=== PATIENT | female | born 1995 | race Caucasian/White ===

== ENCOUNTER 2018-07-20 02:03 | Emergency (ER) | payer OTHER, SELFPAY ==
[2018-07-20 02:05] VITALS: BP 92/59; PULSE 103; RESP 20; TEMP 36.6; O2SAT 97
--- NOTE | 2018-07-20 02:43 | W.ED.GENAD ---
Discharge Plan Disposition Patient Disposition: HOME Condition: Good Discharge Details Chief Complaint: Chest/Rib Clinical Impression: Viral respiratory illness, Atypical chest pain Primary Care Provider: Dale Pratt ED Provider: Aleksandr Carmona Meds and New Rx's Prescriptions: Continued cetirizine 10 MG tablet 10 mg PO DAILY Qty: 30 RF: 0 diphenhydramine HCl [Benadryl] 25 MG capsule 25 mg PO PRN RF: 0 Discharge Instructions Instructions: Viral Syndrome (ED) Additional Instructions: Suspect pain is related to viral illness. Use Motrin or Tylenol to help with fever, body aches, chest pain. Stay hydrated. Return to emergency department if you develop shortness of breath, worsening/persistent chest pain, other concerns. Referrals: Dale Pratt [Primary Care Provider] - Medical Decision Making Patient here with bandlike chest pain which is resolved. Episodes were intermittent lasting only 30 seconds at a time. She had no associated shortness of breath. She did not feel short of breath currently. Pain was not pleuritic. It was not reproducible. She has been ill today with fever, cough, body aches. Saturations are normal. Lungs are clear to auscultation. She has arrhythmia with frequent ectopic beats which has been worked up previously. I do not suspect that this is related to cardiac ischemia. I do not suspect pulmonary embolus. I do not suspect pneumonia with clear lungs with normal saturations. Suspect this is all related to viral illness. Discussed this with the patient. Will give Motrin. Continue as needed at home. Push fluids and rest. Follow-up with primary care next week if not better. Return to ED if develops shortness of breath, new or worsening persistent chest pain, other concerns. HPI General Mode of arrival: ambulatory. Date/Time Provider Initiated Documentation: 07/20/18 02:14. Limitations to Documentation: no limitations. Information obtained by: patient. HPI Narrative: Patient presents to ED because of bandlike lower chest pain that occurred on and off this evening while trying to sleep. Episodes would last maybe 30 seconds. They were not pleuritic in nature. She did not feel short of breath. Pain is not worse with movement. She has been ill today with fever, headache, body aches, cough. She is not having nausea, vomiting, abdominal pain. She has no pain currently. She has a history of arrhythmia and is been worked up at [facility]. She has no other significant past medical history. Related Data Home Medications Medication Instructions Recorded Confirmed cetirizine 10 mg PO DAILY #30 tab-cap 04/03/13 07/20/18 diphenhydramine HCl [Benadryl] 25 mg PO PRN 07/07/17 07/20/18 Allergies Allergy/AdvReac Type Severity Reaction Status Date / Time No Known Allergies Allergy Unverified 07/07/17 10:10 General Stated Complaint: Chest/Rib SCOOTER: 4 Review of Systems Constitutional Reports body ache(s), Reports fever(s), Reports headache(s), Denies lethargy, Reports malaise, Denies poor appetite and Denies weakness ENT Denies otalgia, Reports headache(s), Denies nasal congestion, Denies nasal discharge, Denies neck pain and Denies sore throat Cardiovascular Reports chest pain, Denies diaphoresis, Denies syncope, Denies pedal edema, Denies edema, Reports irregular heart rhythm, Denies dyspnea and Denies dyspnea on exertion Respiratory Reports cough, Denies dyspnea and Denies dyspnea on exertion Gastrointestinal Denies abdominal pain, Denies diarrhea, Denies nausea and Denies vomiting Musculoskeletal Denies back pain, Reports myalgias, Denies neck pain and Denies numbness Integumentary/Breasts Denies rash Neurologic Denies confusion, Denies syncope, Reports headache(s), Denies focal weakness, Denies numbness and Denies weakness Psychiatric Denies confusion [facility] Medical History Arrhythmia (Chronic) Seasonal allergies (Chronic) Family History Maternal Aunt Breast cancer Social History Smoking/Tobacco Use Status: Never Exam Const General: cooperative, comfortable and no acute distress Orientation: alert and oriented x3 HENMT Head: normocephalic and atraumatic Ears: external ears normal and TM's normal bilaterally Mouth: oropharynx normal and moist mucous membranes Throat: posterior oropharynx normal, uvula midline and no uvular edema Eyes Conjunctivae: conjunctivae normal Neck Neck: trachea midline and supple Chest Chest: no tenderness Resp Effort & Inspection: normal respiratory effort Auscultation: clear to auscultation bilaterally, no rales, no rhonchi and no wheezes Cardio Rate: regular rate Rhythm: abnormal rhythm with ectopic beats Heart Sounds: S1 normal and S2 normal Back/Spine/Pelvis Thoracic/Lumbar Spine: thoracic and lumbar spine normal to inspection and thoraco-lumbar ROM normal Skin General skin exam: no rashes or lesions noted Neuro General: alert, oriented x3, no focal motor deficits and CN's II-XI intact bilaterally Extrem General: no clubbing, cyanosis or edema and no calf tenderness Course Vital Signs Temperature 97.9 F 07/20/18 02:05 Pulse 103 H 07/20/18 02:05 Respiratory Rate 20 07/20/18 02:05 Blood Pressure 92/59 L 07/20/18 02:05 Pulse Oximetry 97 07/20/18 02:05 Temperature 97.9 F 07/20/18 02:05 Temperature Source Skin 07/20/18 02:05 Pulse 103 H 07/20/18 02:05 Respiratory Rate 20 07/20/18 02:05 Respiratory Effort 07/20/18 02:19 Respiratory Depth Normal 07/20/18 02:19 Respiratory Pattern Normal 07/20/18 02:19 Blood Pressure 92/59 L 07/20/18 02:05 Blood Pressure Position Sitting 07/20/18 02:05 Pulse Oximetry 97 07/20/18 02:05 Oxygen Delivery Method Room Air 07/20/18 02:05 Oxygen Flow Rate 0 07/20/18 02:05 Pain Level 6 07/20/18 02:05
--- NOTE | 2018-07-20 02:46 | ED.GENADUL_ITS ---
Discharge Plan Disposition Patient Disposition: HOME Condition: Good Discharge Details Chief Complaint: Chest/Rib Clinical Impression: Viral respiratory illness, Atypical chest pain Primary Care Provider: Dale Pratt ED Provider: Aleksandr Carmona Meds and New Rx's Prescriptions: Continued cetirizine 10 MG tablet 10 mg PO DAILY Qty: 30 RF: 0 diphenhydramine HCl [Benadryl] 25 MG capsule 25 mg PO PRN RF: 0 Discharge Instructions Instructions: Viral Syndrome (ED) Additional Instructions: Suspect pain is related to viral illness. Use Motrin or Tylenol to help with fever, body aches, chest pain. Stay hydrated. Return to emergency department if you develop shortness of breath, worsening/persistent chest pain, other co ncerns. Referrals: Dale Pratt [Primary Care Provider] - Medical Decision Making Patient here with bandlike chest pain which is resolved. Episodes were intermittent lasting only 30 seconds at a time. She had no associated shortness of breath. She did not feel short of breath currently. Pain was not pleuritic. It was not reproducible. She has been ill today with fever, cough, body aches. Saturations are normal. Lungs are clear to auscultation. She has arrhythmia with frequent ectopic beats which has been worked up previously. I do not suspect that this is related to cardiac ischemia. I do not suspect pulmonary embolus. I do not suspect pneumonia with clear lungs with normal saturations. Suspect this is all related to viral illness. Discussed this with the patient. Will give Motrin. Continue as needed at home. Push fluids and rest. Follow-up with primary care next week if not better. Return to ED if develops shortness of breath, new or worsening persistent chest pain, other concerns. HPI General Mode of arrival: ambulatory . Date/Time Provider Initiated Documentation: 07/20/18 02:14 . Limitations to Documentation: no limitations . Information obtained by: patient . HPI Narrative: Patient presents to ED because of bandlike lower chest pain that occurred on and off this evening while trying to sleep. Episodes would last maybe 30 seconds. They were not pleuritic in nature. She did not feel short of breath. Pain is not worse with movement. She has been ill today with fever, headache, body aches, cough. She is not having nausea, vomiting, abdominal pain. She has no pain currently. She has a history of arrhythmia and is been worked up at [facility]. She has no other significant past medical history. Related Data Home Medications Medication Instructions Recorded Confirmed cetirizine 10 mg PO DAILY #30 tab-cap 04/03/13 07/20/18 diphenhydramine HCl [Benadryl] 25 mg PO PRN 07/07/17 07/20/18 Allergies Allergy/AdvReac Type Severity Reaction Status Date / Time No Known Allergies Allergy Unverified 07/07/17 10:10 General Stated Complaint: Chest/Rib SCOOTER: 4 Review of Systems Constitutional Reports body ache(s), Reports fever(s), Reports headache(s), Denies lethargy, Reports malaise, Denies poor appetite and Denies weakness ENT Denies otalgia, Reports headache(s), Denies nasal congestion, Denies nasal discharge, Denies neck pain and Denies sore throat Cardiovascular Reports chest pain, Denies diaphoresis, Denies syncope, Denies pedal edema, Denies edema, Reports irregular heart rhythm, Denies dyspnea and Denies dyspnea on exertion Respiratory Reports cough, Denies dyspnea and Denies dyspnea on exertion Gastrointestinal Denies abdominal pain, Denies diarrhea, Denies nausea and Denies vomiting Musculoskeletal Denies back pain, Reports myalgias, Denies neck pain and Denies numbness Integumentary/Breasts Denies rash Neurologic Denies confusion, Denies syncope, Reports headache(s), Denies focal weakness, Denies numbness and Denies weakness Psychiatric Denies confusion [facility] Medical History Arrhythmia (Chronic) Seasonal allergies (Chronic) Family History Maternal Aunt Breast cancer Social History Smoking/Tobacco Use Status: Never Exam Const General: cooperative, comfortable and no acute distress Orientation: alert and oriented x3 HENMT Head: normocephalic and atraumatic Ears: external ears normal and TM's normal bilaterally Mouth: oropharynx normal and moist mucous membranes Throat: posterior oropharynx normal, uvula midline and no uvular edema Eyes Conjunctivae: conjunctivae normal Neck Neck: trachea midline and supple Chest Chest: no tenderness Resp Effort & Inspection: normal respiratory effort Auscultation: clear to auscultation bilaterally, no rales, no rhonchi and no wheezes Cardio Rate: regular rate Rhythm: abnormal rhythm with ectopic beats Heart Sounds: S1 normal and S2 normal Back/Spine/Pelvis Thoracic/Lumbar Spine: thoracic and lumbar spine normal to inspection and thoraco-lumbar ROM normal Skin General skin exam: no rashes or lesions noted Neuro General: alert, oriented x3, no focal motor deficits and CN's II-XI intact bilaterally Extrem General: no clubbing, cyanosis or edema and no calf tenderness Course Vital Signs Temperature 97.9 F 07/20/18 02:05 Pulse 103 H 07/20/18 02:05 Respiratory Rate 20 07/20/18 02:05 Blood Pressure 92/59 L 07/20/18 02:05 Pulse Oximetry 97 07/20/18 02:05 Temperature 97.9 F 07/20/18 02:05 Temperature Source Skin 07/20/18 02:05 Pulse 103 H 07/20/18 02:05 Respiratory Rate 20 07/20/18 02:05 Respiratory Effort 07/20/18 02:19 Respiratory Depth Normal 07/20/18 02:19 Respiratory Pattern Normal 07/20/18 02:19 Blood Pressure 92/59 L 07/20/18 02:05 Blood Pressure Position Sitting 07/20/18 02:05 Pulse Oximetry 97 07/20/18 02:05 Oxygen Delivery Method Room Air 07/20/18 02:05 Oxygen Flow Rate 0 07/20/18 02:05 Pain Level 6 07/20/18 02:05
[2018-07-20] MEDS: Ibuprofen 600 MG TAB PO (02:49)
== END 2018-07-20 03:00 | disposition home or self-care (01) ==
LOC: ER 02:57
PROVIDERS: Emergency Provider Emergency Medicine; PCP Specialist/Technologist Athletic Trainer
DX: B34.9 Viral infection, unspecified (principal); R07.89 Other chest pain
CPT/HCPCS: 99282

== ENCOUNTER 2021-12-02 21:46 | Emergency (ER) | payer BC, SELFPAY ==
[2021-12-02 21:52] VITALS: BP 132/68; PULSE 82; RESP 18; TEMP 36.3; O2SAT 96
--- NOTE | 2021-12-02 22:00 | DI.CT_ITS ---
Exam(s) CT RENAL COLIC WO EXAM: CT RENAL COLIC WO CLINICAL HISTORY: Right flank pain. TECHNIQUE: Imaging Protocol: Axial computed tomography images with coronal and sagittal reformatted images were created and reviewed CONTRAST MATERIAL: Intravenous: none Oral: None COMPARISON: No exams were available for comparison FINDINGS: VISUALIZED LUNG BASES: Tiny 2 millimeter pleural based nodule noted in the lateral basal segment of t he left lower lobe. No pleural effusions.. ABDOMEN: There is no ascites in the upper abdomen. LIVER: There are no obvious focal hepatic lesions evident of this noninfused study. GALLBLADDER/BILIARY: No obvious gallbladder pathology. CBD is not dilated. PANCREAS: No evidence of pancreatic mass nor dilatation of the pancreatic duct. SPLEEN: Spleen is not enlarged. No obvious intrasplenic lesions. ADRENALS: There are no significant adrenal masses. KIDNEYS:No cysts evident. No solid renal masses. No calculi nor hydronephrosis. . ABDOMINAL AORTA: Abdominal aorta is not enlarged. LYMPH NODES: There is no retroperitoneal nor paraaortic adenopathy. ABDOMINAL WALL: No evidence of significant anterior abdominal wall nor inguinal hernia. GI: There is no evidence of bowel obstruction, free air, nor abscess. PELVIS: LYMPH NODES: There is no intrapelvic nor inguinal adenopathy. GI: No evidence of appendicitis.No evidence of sigmoid diverticulitis. URINARY BLADDER: No calculi nor obvious masses evident REPRODUCTIVE: Uterus is retroverted-retroflexed. No abnormal adnexal masses.. There is a small amou nt of fluid in the cul-de-sac. This may be female physiologic. OSSEOUS: No significant osseous lesions. IMPRESSION: 1. No urinary tract calculi nor urinary tract obstruction evident. No significant focal renal findin gs nor obvious abnormality in the nondistended urinary bladder. 2. Small amount of fluid in the cul-de-sac. Probably female physiologic. Uterus is retroverted. 3. There RADIATION DOSE DELIVERED: 859.36mGy.cm Total DLP DATA REPOSITORY: All CT scans at this facility are submitted to the National Radiology Data Registry (NRDR) Dose Index Registry (DIR) with the [employer] (A[employer]). RADIATION OPTIMIZATION: All CT scans at this facility use at least one of these dose optimization te chniques: automated exposure control; mA and/or kV adjustment per patient size (includes targeted exa ms where dose is matched to clinical indication); or iterative reconstruction.
[2021-12-02 22:37] LABS: Bilirubin Negative (Negative); Blood Negative (Negative); Clarity Clear (Clear); Glucose Negative (Negative); Ketones Negative (Negative); Leukocyte Esterase Negative (Negative); Nitrite Negative (Negative); Specific Gravity 1.025 (1.005-1.025)
[2021-12-02 23:00] LABS: Abs Immature Grans 0.03 10^3/uL (0.0-0.06); Absolute Basophil Count 0.04 10^3/uL (0.0-0.2); Absolute Eosinophil Count 0.12 10^3/uL (0.0-0.7); Absolute Lymphocyte Count 2.87 10^3/uL (1.2-3.4); Absolute Neutrophil Count 6.28 10^3/uL (1.2-6.7); Basophils % 0.4; Eosinophils % 1.2; HCT 38.9 % (36.0-46.0); HGB 13.2 g/dL (11.2-15.7); Immature Grans % 0.3; Lymphocytes % 27.8; MCH 29.1 pg (27.0-33.0); MCHC 33.9 % (32.0-36.0); MCV 86 fL (80-95); MPV 10.1 fL (8.0-11.0); Monocytes % 9.7; Neutrophils % 60.6; Platelet Count 263 10^3/uL (130-400); RBC 4.53 10^6/uL (3.93-5.22); RDW 12.8 % (11.7-14.6); WBC 10.34 10^3/uL (4.4-10.8)
[2021-12-02 23:18] LABS: ALT 19 U/L (14-59); AST 12 U/L (15-37); Albumin 3.7 g/dL (3.4-5.0); Alkaline Phosphatase 80 U/L (46-116); Anion Gap 6.8 mmol/L (3-11); BUN 10 mg/dL (7-18); Bilirubin, Total 0.3 mg/dL (0.2-1.0); CO2 28.2 mmol/L (21.0-32.0); CREATININE 0.8 mg/dL (0.55-1.02); Chloride 104 mmol/L (98-107); Glucose 90 mg/dL (74-106); Potassium 3.8 mmol/L (3.5-5.1); Sodium 139 mmol/L (136-145); Total Protein 7.2 g/dL (6.4-8.2)
--- NOTE | 2021-12-02 23:31 | W.ED.GENAD ---
Discharge Plan Disposition Patient Disposition: HOME Condition: Stable Discharge Details Clinical Impression: Acute abdominal pain in right flank Primary Care Provider: Dale Pratt ED Provider: Guille Evans Home Meds and New Rx's Prescriptions: No Action cetirizine 10 MG tablet 10 mg PO DAILY Qty: 30 Label Comments: PRN diphenhydramine HCl [Benadryl] 25 MG capsule 25 mg PO PRN Discharge Data Discharge Date/Time-TO BE ENTERED AT DEPARTURE: 12/03/21 00:10 Medical Decision Making <Kj Almendarez NP - Last Filed: 12/04/21 10:36> Patient presenting the emergency department for chief complaint of right flank pain with pain slightly radiating into right lower quadrant. Patient reports that pain started yesterday and has had some mild nausea with symptoms. Previously she did have a urinary tract infection that also caused some flank pain but this has been different. Patient denies any vomiting, change in bowel or bladder function, food does not seem to change onset of symptoms, denies fever chills. Physical exam shows no CVA tenderness, mild tenderness to palpation of right flank and right lower quadrant but no rebound, no obvious psoas sign, no roving sign, no Mcclain sign exam otherwise unremarkable. We will plan on checking labs and CT imaging for suspicion of renal colic. Reviewed labs and CBC is unremarkable, CMP is also unremarkable, urine shows mild increase of urobilinogen but again otherwise unremarkable no signs of infection. Awaiting full radiology review and interpretation of CT scan. We will plan on signing patient out to Amandeep Evans to follow-up on radiological imaging and disposition of patient. Lab Data Lab results reviewed: Yes I reviewed the patient's lab results. <Guille Evans DO - Last Filed: 12/03/21 00:31> Patient presenting the emergency department for chief complaint of right flank pain with pain slightly radiating into right lower quadrant. Patient reports that pain started yesterday and has had some mild nausea with symptoms. Previously she did have a urinary tract infection that also caused some flank pain but this has been different. Patient denies any vomiting, change in bowel or bladder function, food does not seem to change onset of symptoms, denies fever chills. Physical exam shows no CVA tenderness, mild tenderness to palpation of right flank and right lower quadrant but no rebound, no obvious psoas sign, no roving sign, no Mcclain sign exam otherwise unremarkable. We will plan on checking labs and CT imaging for suspicion of renal colic. Reviewed labs and CBC is unremarkable, CMP is also unremarkable, urine shows mild increase of urobilinogen but again otherwise unremarkable no signs of infection. Awaiting full radiology review and interpretation of CT scan. We will plan on signing patient out to Amandeep Evans to follow-up on radiological imaging and disposition of patient. Dr. Evans's documentation 12:29 AM Patient was signed out to me pending CT scan results. Unfortunately the patient eloped without telling anyone. I did not get to evaluate or reevaluate the patient. CT scan results did return later, and CT shows no evidence of acute process. I did call the patient but she did not steel pickler. I did leave a message. FINDINGS: Liver: Normal. No mass. Gallbladder and bile ducts: Normal. No calcified stones. No ductal dilation. Pancreas: Normal. No ductal dilation. Spleen: Normal. No splenomegaly. Adrenal glands: Normal. No mass. Kidneys and ureters: Normal. No hydronephrosis. Stomach and bowel: Unremarkable. No obstruction. No mucosal thickening. Appendix: No evidence of appendicitis. Intraperitoneal space: Minimal pelvic free fluid, likely physiologic in female patient of stated age. Vasculature: Unremarkable. No abdominal aortic aneurysm. Lymph nodes: Unremarkable. No enlarged lymph nodes. Urinary bladder: Unremarkable as visualized. Reproductive: Unremarkable as visualized. Bones/joints: Unremarkable. No acute fracture. Soft tissues: Unremarkable. IMPRESSION: No acute finding. Thank you for allowing us to participate in the care of your patient. Dictated and Authenticated by: Prince Tsai MD 12/03/2021 12:00 AM Eastern Time ([place] & [place]) HPI <Kj Almendarez NP - Last Filed: 12/04/21 10:36> General Mode of arrival: ambulatory. Date/Time Provider Initiated Documentation: 12/02/21 22:05. Limitations to Documentation: no limitations. Information obtained by: patient. History of Present Illness 26 year old F presents to the emergency department with the chief complaint of Right flank pain, described as moderate, with intensity rated at 5. Quality is described as aching, and is localized to the abdomen (flank) and right. Patient abdomen. Patient started experiencing this day(s) (1) and it has been constant. No relieving factors improve symptom(s), Movement worsens symptoms . Patient notes denies chest pain, fever/chills, loss of appetite and malaise. Patient did receive the following treatments prior to arrival, none Related Data Home Medications Medication Instructions Recorded Confirmed cetirizine 10 mg tablet 10 mg PO DAILY #30 tab-caps 04/03/13 12/02/21 diphenhydramine HCl 25 mg capsule 25 mg PO PRN 07/07/17 07/20/18 (Benadryl) Allergies Allergy/AdvReac Type Severity Reaction Status Date / Time No Known Allergies Allergy Unverified 12/02/21 21:57 General Stated Complaint: FlankPain SCOOTER: 3 Review of Systems <Kj Almendarez NP - Last Filed: 12/04/21 10:36> Constitutional Constitutional: Denies chills, Denies fever(s), Denies headache(s) and Denies poor appetite ENT Ears, Nose, Mouth, and Throat: Denies headache(s) Cardiovascular Cardiovascular: Denies chest pain and Denies dyspnea Respiratory Respiratory: Denies cough and Denies dyspnea Gastrointestinal Gastrointestinal: Reports as per HPI, Reports abdominal pain, Denies melena, Denies hematochezia, Denies change in bowel habits, Denies constipation, Denies diarrhea, Reports nausea, Denies vomiting and Denies hematemesis Genitourinary Genitourinary: Denies abnormal vaginal bleeding, Denies hematuria, Denies difficulty voiding, Denies dysuria, Denies pelvic pain, Reports flank pain, Denies urinary incontinence, Denies urinary hesitancy, Denies urinary urgency and Denies vaginal discharge Musculoskeletal Musculoskeletal: Denies back pain Integumentary/Breasts Skin/Breast: Denies rash Neurologic Neurologic: Denies headache(s) PFS <Kj Almendarez NP - Last Filed: 12/04/21 10:36> All Active Problems (Updated 12/04/21 @ 10:36 by Kj Almendarez NP) Acute abdominal pain in right flank (Acute) Medical History Arrhythmia Seasonal allergies Family History Maternal Aunt Breast cancer 40s, tx lumpectomy, chemo/radiation Social History Smoking/Tobacco Use Status: Never Smoking risk assessment performed?: Yes Alcohol Intake: never Drug use: Never Substance use type: does not use Do you feel safe at home: Yes Do you feel safe in your relationship?: Yes Female Reproductive History Menstrual Date of last menstrual period: 11/17/21 Course <Kj Almendarez NP - Last Filed: 12/04/21 10:36> Vital Signs Vital signs: Vital Signs Temperature 36.3 C L 12/02/21 21:52 Pulse 82 12/02/21 21:52 Respiratory Rate 18 12/02/21 21:52 Blood Pressure 132/68 12/02/21 21:52 Pulse Oximetry 96 12/02/21 21:52 Temperature 36.3 C L 12/02/21 21:52 Pulse 82 12/02/21 21:52 Respiratory Rate 18 12/02/21 21:52 Respiratory Effort Non-Labored 12/02/21 21:55 Blood Pressure 132/68 12/02/21 21:52 Blood Pressure Position Sitting 12/02/21 21:52 Pulse Oximetry 96 12/02/21 21:52 Oxygen Delivery Method Room Air 12/02/21 21:52 Oxygen Flow Rate 0 12/02/21 21:52 Pain Level 5 12/02/21 21:55 Lab/Test Results Lab/Test Results: Laboratory Tests Range/Units 12/02/21 12/02/21 12/02/21 22:22 22:50 22:50 WBC (4.4-10.8) 10^3/uL 10.34 RBC (3.93-5.22) 10^6/uL 4.53 Hgb (11.2-15.7) g/dL 13.2 Hct (36.0-46.0) % 38.9 MCV (80-95) fL 86 MCH (27.0-33.0) pg 29.1 MCHC (32.0-36.0) % 33.9 RDW (11.7-14.6) % 12.8 Plt Count (130-400) 10^3/uL 263 MPV (8.0-11.0) fL 10.1 Immature Gran % 0.3 Neutrophils % 60.6 Lymphocytes % 27.8 Monocytes % 9.7 Eosinophils % 1.2 Basophils % 0.4 Nucleated RBC % (0.0-0.3) % 0.0 Absolute Neutrophils (1.2-6.7) 10^3/uL 6.28 Absolute Lymphocytes (1.2-3.4) 10^3/uL 2.87 Absolute Monocytes (0.1-0.8) 10^3/uL 1.00 H Absolute Eosinophils (0.0-0.7) 10^3/uL 0.12 Absolute Basophils (0.0-0.2) 10^3/uL 0.04 Sodium (136-145) mmol/L 139 Potassium (3.5-5.1) mmol/L 3.8 Chloride (98-107) mmol/L 104 Carbon Dioxide (21.0-32.0) mmol/L 28.2 Anion Gap (3-11) mmol/L 6.8 BUN (7-18) mg/dL 10 Creatinine (0.55-1.02) mg/dL 0.8 Estimated GFR/1.73 m2 (mL/min/1.73m2) >= 60.00 Glucose (74-106) mg/dL 90 Calcium (8.5-10.1) mg/dL 9.0 Total Bilirubin (0.2-1.0) mg/dL 0.3 AST (15-37) U/L 12 L ALT (14-59) U/L 19 Alkaline Phosphatase (46-116) U/L 80 Total Protein (6.4-8.2) g/dL 7.2 Albumin (3.4-5.0) g/dL 3.7 Urine Color (Yellow) Yellow Urine Clarity (Clear) Clear Urine pH (5-8) 7.0 Ur Specific [place] (1.005-1.025) 1.025 Urine Protein (Negative) mg/dL Negative Urine Ketones (Negative) mg/dL Negative Urine Blood (Negative) Negative Urine Nitrite (Negative) Negative Urine Bilirubin (Negative) Negative Urine Urobilinogen (Up TO 0.2) EU/dL 1.0 H Ur Leukocyte Esterase (Negative) Negative Urine Glucose (Negative) mg/dL Negative POC- Test(urine) Negative Sign Out <Kj Almendarez NP - Last Filed: 12/04/21 10:36> Sign Out Data: Sign Out Comment: Patient pending radiologist interpretation of CT scan. Patient has refused IV fluids and pain medication. Labs are reassuring. Last updated by Kj Almendarez NP at 12/02/21 23:46
--- NOTE | 2021-12-03 00:01 | DI.VRAD_ITS ---
PROCEDURE INFORMATION: Exam: CT Abdomen And Pelvis Without Contrast Exam date and time: 12/02/2021 11:19 PM Age: 26 years old Clinical indication: Patient HX: R flank pain since yesterday TECHNIQUE: Imaging protocol: Computed tomography of the abdomen and pelvis without contrast. Radiation optimization: All CT scans at this facility use at least one of these dose optimization techniques: automated exposure control; mA and/or kV adjustment per patient size (includes targeted exams where dose is matched to clinical indication); or iterative reconstruction. COMPARISON: No relevant prior studies available. FINDINGS: Liver: Normal. No mass. Gallbladder and bile ducts: Normal. No calcified stones. No ductal dilation. Pancreas: Normal. No ductal dilation. Spleen: Normal. No splenomegaly. Adrenal glands: Normal. No mass. Kidneys and ureters: Normal. No hydronephrosis. Stomach and bowel: Unremarkable. No obstruction. No mucosal thickening. Appendix: No evidence of appendicitis. Intraperitoneal space: Minimal pelvic free fluid, likely physiologic in female patient of stated age. Vasculature: Unremarkable. No abdominal aortic aneurysm. Lymph nodes: Unremarkable. No enlarged lymph nodes. Urinary bladder: Unremarkable as visualized. Reproductive: Unremarkable as visualized. Bones/joints: Unremarkable. No acute fracture. Soft tissues: Unremarkable. IMPRESSION: No acute finding. Dictated and Authenticated by: Prince Tsai MD. Ordering:KAYKAY Underwood MD
== END 2021-12-03 00:10 | disposition home or self-care (01) ==
PROVIDERS: Nurse Practitioner Family; Emergency Provider Student in an Organized Health Care Education/Training Program; PCP Nurse Practitioner Family
DX: R10.9 Unspecified abdominal pain (principal); R10.31 Right lower quadrant pain
CPT/HCPCS: 36415; 80053; 81025; 99284; 74176; 81003; 85025; 99283

== ENCOUNTER 2023-02-28 10:11 | Emergency (ER) | payer BC, SELFPAY ==
[2023-02-28 10:16] VITALS: BP 105/73; PULSE 90; RESP 18; TEMP 36.7; O2SAT 97
--- NOTE | 2023-02-28 10:43 | ED.GENADUL_ITS ---
Discharge Plan Disposition Patient Disposition: Home Condition: Stable Discharge Details Clinical Impression: Pharyngitis Primary Care Provider: Noelle Umaña ED Provider: hSane Quintanilla Home Meds and New Rx's Prescriptions: Continued cetirizine [Zyrtec] 10 MG tablet 10 mg PO DAILY Qty: 30 Patient Comments: PRN diphenhydramine HCl [Benadryl] 25 MG capsule 25 mg PO PRN Discharge Instructions Instructions: Pharyngitis (ED) Additional Instructions: Rapid strep testing today was negative. Throat culture has been sent. If the throat culture grows out any concerning bacteria, we will contact you to start antibiotic. Please take ibuprofen over the counter. Take 600mg by mouth every 6 hours as needed for pain. Perform salt water gargles a few times a day over the next week. Please contact your primary care physician to arrange follow-up. Return to the ER immediately for any worsening or new concerning symptoms. Referrals: Noelle Umaña [Primary Care Provider] - Medical Decision Making 27-year-old female here with pharyngitis. Inflammation is worse on the right side. No signs of peritonsillar abscess. Rapid strep test was performed and negative. Throat culture pending. Plan for supportive care. Usual and customary discharge instructions were reviewed with the patient HPI General Mode of arrival: ambulatory . Date/Time Provider Initiated Documentation: 02/28/23 10:16 . Limitations to Documentation: no limitations . Information obtained by: patient . HPI Narrative: 27-year-old with chief complaint of sore throat that started yesterday. Sore throat is moderate. No difficulty swallowing. She has had associated fevers last night. No associated rash. Related Data Home Medications Medication Instructions Recorded Confirmed cetirizine 10 mg tablet (Zyrtec) 10 mg PO DAILY #30 tab-caps 04/03/13 02/28/23 diphenhydramine HCl 25 mg capsule 25 mg PO PRN 07/07/17 02/28/23 (Benadryl) Allergies Allergy/AdvReac Type Severity Reaction Status Date / Time No Known Allergies Allergy Unverified 12/02/21 21:57 General Stated Complaint: Sorethroat SCOOTER: 4 Review of Systems All systems reviewed & are unremarkable except as noted in HPI and below Constitutional Constitutional: Reports fever(s) ENT Ears, Nose, Mouth, and Throat: Reports as per HPI PFSH All Active Problems Pharyngitis (Acute) Medical History Arrhythmia Seasonal allergies Family History Maternal Aunt Breast cancer 40s, tx lumpectomy, chemo/radiation Social History Smoking/Tobacco Use Status: Never Smoking risk assessment performed?: Yes Alcohol Intake: never Drug use: Never Substance use type: does not use Do you feel safe at home: Yes Do you feel safe in your relationship?: Yes Exam Const General: cooperative and no acute distress HENMT Mouth: moist mucous membranes Throat: uvula midline, no peritonsillar masses and posterior oropharynx abnormal erythema and exudates (rt>lt) Other: No trismus or stridor Eyes Conjunctivae: normal conjunctivae Sclera: normal sclerae Neck Neck: trachea midline and supple Lymphatic: lymphadenopathy (Right anterior cervical) Resp Auscultation: clear to auscultation bilaterally, no rales, no rhonchi and no wheezes Cardio Rate: regular rate and not tachycardic Rhythm: regular rhythm Skin General skin exam: no rashes or lesions noted Course Vital Signs Vital signs: Vital Signs Temperature 36.7 C 02/28/23 10:16 Pulse 90 02/28/23 10:16 Respiratory Rate 18 02/28/23 10:16 Blood Pressure 105/73 02/28/23 10:16 Pulse Oximetry 97 02/28/23 10:16 Temperature 36.7 C 02/28/23 10:16 Temperature Source Temporal Artery Scan 02/28/23 10:16 Pulse 90 02/28/23 10:16 Respiratory Rate 18 02/28/23 10:16 Respiratory Effort Normal 02/28/23 10:27 Blood Pressure 105/73 02/28/23 10:16 Blood Pressure Position Sitting 02/28/23 10:16 Pulse Oximetry 97 02/28/23 10:16 Oxygen Delivery Method Room Air 02/28/23 10:16 Oxygen Flow Rate 0 02/28/23 10:16 Pain Level 2 02/28/23 10:16 Lab/Test Results Lab/Test Results: 02/28/23 10:40 Tonsil - Not Specified Group A Streptococcus Culture - Pending POC Strep Test-ETHEL(Rapid) Start: 02/28/23 10:25 Freq: .Rapid Strep Test Status: Active Protocol: Document 02/28/23 10:40 SCOTTY (Rec: 02/28/23 10:40 [id number] [id number]) Strep test-ETHEL(Rapid)-POC POC-Strep test-ETHEL (Rapid) Negative POC-Strep test-ETHEL (Rapid) Negative
== END 2023-02-28 13:52 | disposition home or self-care (01) ==
PROVIDERS: Emergency Provider Student in an Organized Health Care Education/Training Program; PCP Nurse Practitioner Family
DX: J02.9 Acute pharyngitis, unspecified (principal)
CPT/HCPCS: 87880; 99283; 87081

== ENCOUNTER 2023-11-02 16:38 | Outpatient (REF) | payer BC, SELFPAY | END 2023-11-02 16:39 | disposition home or self-care (01) | LOC: LBN 16:38 | PROVIDERS: PCP Nurse Practitioner Family; Visit Provider Physician Assistant | DX: Z20.818 Contact with and (suspected) exposure to other bacterial communicable diseases (principal); B95.0 Streptococcus, group A, as the cause of diseases classified elsewhere | CPT/HCPCS: 87077; 87070 ==